=== PATIENT | female | born 2000 | race Caucasian/White ===

== ENCOUNTER 2025-03-01 20:31 | Emergency (ER) | payer BC ==
[~2025-03-01] VITALS: Ht 172.7 cm; Wt 70.3 kg
[2025-03-01 20:34] VITALS: TEMP 98.6
[2025-03-01] MEDS: ACETAMINOPHEN 325 MG TAB PO STA (23:22)
[2025-03-02 00:30] VITALS: PULSE 72; RESP 17
[2025-03-02] MEDS ORDERED: CEPHALEXIN500 MG PO (00:30)
[2025-03-02 00:42] VITALS: BP 122/71; O2SAT 100
== END 2025-03-02 00:35 | disposition home or self-care (01) ==
LOC: ER 20:36
DX: O20.0 Threatened abortion (principal)
CPT/HCPCS: 76801; 76817; 99284